=== PATIENT | male | born 1995 | race Caucasian/White ===

== ENCOUNTER 2017-12-04 17:27 | Inpatient (IN) | payer OTHER ==
[~2017-12-04] VITALS: Ht 182.9 cm; Wt 102.9 kg
[~2017-12-04 17:27] MED LIST: KEFLEX500 MG PO
[2017-12-04 19:29] LABS: HEMOGLOBIN 15.2 G/DL (12.5-16.6); MCH 28.9 PG (29.0-34.0); MCHC 34.5 G/DL (30.0-36.0); MCV 83.7 FL (86-99); PLATELET COUNT 213 K/uL (156-360); RBC DIS.WIDTH-CV 12.5 % (11.8-14.6); RED BLOOD COUNT 5.26 M/uL (4.00-5.50); WHITE BLOOD COUNT 6.8 K/uL (4.1-10.2)
[2017-12-04 19:45] LABS: CHLORIDE 104 mEq/L (99-109); POTASSIUM 3.9 mEq/L (3.7-5.4); SODIUM 139 mEq/L (136-147)
[2017-12-04 19:47] LABS: GLUCOSE 82 mg/dL (70-99)
[2017-12-04 19:50] LABS: SERUM ETHYL ALCOHOL < 10 mg/dL
[2017-12-04 19:51] LABS: CREATININE 0.9 mg/dL (0.6-1.3); GFR ESTIMATE (CALCULATED) > 59 mL/min/ (58.99-99999)
[2017-12-04 19:52] LABS: UREA NITROGEN (BUN) 9 mg/dL (9-23)
[2017-12-04 20:50] LABS: AMPHETAMINE NEGATIVE (500 ng/mL); BARBITURATES NEGATIVE (200 ng/mL); BENZODIAZEPINES NEGATIVE (150 ng/mL); BUPRENORPHINE NEGATIVE (10 ng/mL); COCAINE NEGATIVE (150 ng/mL); METHADONE NEGATIVE (200 ng/mL); METHAMPHETAMINE NEGATIVE (500 ng/mL); OPIATES (MORPHINE) NEGATIVE (100 ng/mL); OXYCODONE NEGATIVE (100 ng/mL); PHENCYCLIDINE NEGATIVE (25 ng/mL); PROPOXYPHENE NEGATIVE (300 ng/mL); THC CANNABINOIDS NEGATIVE (50 ng/mL); TRICYCLIC ANTIDEPRESSANTS NEGATIVE (300 ng/mL)
[2017-12-04 22:29] VITALS: BP 130/82
[2017-12-04 22:30] VITALS: BP 130/82
[2017-12-05 08:25] VITALS: BP 129/74
[2017-12-05 15:48] VITALS: BP 119/67
[2017-12-06 09:30] VITALS: BP 111/63
[2017-12-06 15:11] VITALS: BP 129/77
[2017-12-07 08:11] VITALS: BP 100/58
[2017-12-07 15:26] VITALS: BP 140/81
[2017-12-08 07:59] VITALS: BP 107/58
[2017-12-08] MEDS ORDERED: SERTRALINE HCL100 MG PO (09:09)
== END 2017-12-08 11:38 | disposition home or self-care (01) | DRG 885 ==
LOC: EME 17:27 → 1WEST 21:49 → EDOF 21:49 → ENRESERV 22:18 → 1WEST 22:20
DX: F33.2 Major depressive disorder, recurrent severe without psychotic features (principal); F43.23 Adjustment disorder with mixed anxiety and depressed mood; R45.851 Suicidal ideations; Z91.5 Personal history of self-harm
CPT/HCPCS: 80048; 85027; 90839; 97150 GO; 97165 GO; 99281; 99285; G0480